=== PATIENT | male | born 1940 | race Caucasian/White ===

== ENCOUNTER 2019-07-13 16:08 | Emergency (ER) | payer MEDICARE, OTHER ==
[~2019-07-13] VITALS: Ht 170.2 cm; Wt 91.8 kg
[2019-07-13] MEDS ORDERED: DICL1GEL3 TOP (17:27)
[2019-07-13] MEDS ORDERED: LISI40TA PO (17:27)
[2019-07-13] MEDS ORDERED: CHOL100029 PO (17:27)
[2019-07-13] MEDS ORDERED: ATEN100T PO (17:27)
[2019-07-13] MEDS ORDERED: LISI20TA20 PO (17:27)
[2019-07-13] MEDS ORDERED: SIMV40TA2 PO (17:27)
[2019-07-13] MEDS ORDERED: SILD100T PO (17:27)
[2019-07-13] MEDS ORDERED: ASPI81TA85 PO (17:27)
[2019-07-13] MEDS ORDERED: predniSONE 20 MG TAB PO ONE (17:45)
[2019-07-13 18:10] LABS: BASO % 0.6 % (0.0-1.0); EOS # 0.1 10^3/uL (0.0-0.5); EOS % 1.4 % (0.0-3.0); HEMATOCRIT 44.4 % (42.0-52.0); LYMPH # 1.4 10^3/uL (1.5-5.0); LYMPH % 21.5 % (24.0-44.0); MEAN CORPUSCULAR HEMOGLOBIN 31.8 pg (27.0-33.0); MEAN CORPUSCULAR HGB CONC 33.8 g/dl (32.0-36.5); MEAN CORPUSCULAR VOLUME 94.3 fl (80.0-96.0); MONO # 0.6 10^3/uL (0.0-0.8); MONO % 9.1 % (0.0-5.0); NEUTROPHILS # 4.3 10^3/uL (1.5-8.5); NEUTROPHILS % 67.1 % (36.0-66.0); PLATELET COUNT, AUTOMATED 211 10^3/uL (150-450); RED BLOOD COUNT 4.71 10^6/uL (4.30-6.10); WHITE BLOOD COUNT 6.4 10^3/uL (4.0-10.0)
[2019-07-13] MEDS ORDERED: NORCO, ANEXSIA 5/325MG TABLET (HYDROcodone/ACETAMINOPHEN) PO ONE (18:15)
--- NOTE | 2019-07-13 18:39 | REPVR ---
EXAM: CT Left Lower Extremity Without Contrast, Hip EXAM DATE/TIME: 07/13/2019 5:45 PM CLINICAL HISTORY: 79 years old, male; Pain; Hip; Left; Additional info: L hip pain, XR neg, severe, no maryann TECHNIQUE: Imaging protocol: CT of the Left lower extremity without contrast was performed. Exam focused on the hip. Radiation optimization: All CT scans at this facility use at least one of these dose optimization techniques: automated exposure control; mA and/or kV adjustment per patient size (includes targeted exams where dose is matched to clinical indication); or iterative reconstruction. COMPARISON: No relevant prior studies available. 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 Soft tissues: Normal. IMPRESSION: No acute findings. Electronically signed by: Jefferson Smith On 07/13/2019 18:39:14 PM
[2019-07-13 19:00] VITALS: BP 159/74
[2019-07-13] MEDS ORDERED: PRED20TA PO (19:07)
[2019-07-13] MEDS ORDERED: NORC1TAB7 PO (19:07)
[2019-07-13] MEDS ORDERED: CAPS0.022 TOP (19:07)
== END 2019-07-13 19:21 | disposition home or self-care (01) ==
LOC: M ED 16:08
DX: M16.12 Unilateral primary osteoarthritis, left hip (principal); I10 Essential (primary) hypertension; Z79.899 Other long term (current) drug therapy